=== PATIENT | female | born 1950 | race Asian ===

== ENCOUNTER 2016-12-22 05:18 | Emergency (ER) | payer MEDICARE, BC ==
[~2016-12-22] VITALS: Ht 162.6 cm; Wt 68.5 kg
[~2016-12-22 05:18] MED LIST: AUG875 PO; BACTDS PO; BEN25 PO; CEPH-443 PO; CETI10CA PO; CLIN-73 PO; IBUP-1542 PO; KENC1 TOP; LEVE500S9 PO; PHEN30CA79 PO; TRAM50TA2 PO
[2016-12-22 05:19] VITALS: Ht 162.6 cm; Wt 68.5 kg
[2016-12-22] MEDS ORDERED: ASPI-664 PO (05:48)
[2016-12-22] MEDS ORDERED: MULTI PO (05:49)
[2016-12-22] MEDS ORDERED: OMEG-80 PO (05:49)
[2016-12-22] MEDS ORDERED: PHOS100P3 MC (05:50)
[2016-12-22] MEDS ORDERED: ARIP5TAB7 PO (05:51)
[2016-12-22] MEDS ORDERED: LEVE500S9 PO (05:56)
[2016-12-22] MEDS ORDERED: LEVE750T8 PO (05:58)
[2016-12-22] MEDS ORDERED: PHEN200C3 PO (06:02)
[2016-12-22 07:10] LABS: ADD SCAN DIFF NO
[2016-12-22 07:19] LABS: BASOPHILS % 0.7 % (0.0-2.0); HEMATOCRIT 38.6 % (37.0-47.0); HEMOGLOBIN 12.8 g/dl (12.0-16.0); LYMPHOCYTES # 1.4 10^3/ul (0.8-2.9); LYMPHOCYTES % 35.7 % (15.0-51.0); MEAN CORPUSCULAR HEMOGLOBIN 31.1 pg (29.0-33.0); MEAN CORPUSCULAR HGB CONC 33.2 g/dl (32.0-37.0); MEAN CORPUSCULAR VOLUME 93.7 fl (82.0-101.0); MEAN PLATELET VOLUME 8.9 fl (7.4-10.4); MONOCYTE # 0.5 10^3/ul (0.3-0.9); MONOCYTES % 11.4 % (0.0-11.0); NEUTROPHIL # 2.1 10^3/ul (1.6-7.5); PLATELET COUNT 197 10^3/UL (140-415); RED BLOOD COUNT 4.12 10^6/ul (4.20-5.40); RED CELL DISTRIBUTION WIDTH 12.3 % (11.5-14.5)
--- NOTE | 2016-12-22 07:26 | RADRPT ---
PROCEDURE: CT Brain without. CLINICAL INDICATION: Altered mental status TECHNIQUE: A CT of the brain was performed utilizing axial sections from the skull base through th e vertex without contrast. The scan was reviewed in soft tissue brain and high frequency resolution bone algorithm windows. Images were reviewed on a high-resolution PACS workstation. One or more of the following dose reduction techniques were used: Automated exposure control, Adjust ment of the mA and/or kV according to patient size, and/or Use of iterative reconstruction technique . The exam CTDI = 45.01 mGy, and the DLP = 720.23 mGy-cm. COMPARISON: None available FINDINGS: The ventricles are normal in size and midline in position. There is no intracranial hemorrhage, mid line shift, or mass effect. No abnormal extra-axial fluid collections are identified. The yang-whi te differentiation is well preserved. The basal cisterns are patent. The posterior fossa is unrema rkable. The visualized portions of the orbits are unremarkable. The paranasal sinuses and mastoid air cells are clear. No calvarial fracture or abnormality are identified. The soft tissues are unremarkable . IMPRESSION: Unremarkable CT of the brain. RPTAT: HH .Germania Akins MD, MD Date Time Electronically viewed and signed by .Germania Akins MD, on 12/22/2016 07:25 .G/
--- NOTE | 2016-12-22 07:30 | RADRPT ---
PROCEDURE: XR Chest. CLINICAL INDICATION: Chest pain TECHNIQUE: A single AP view of the chest was obtained. COMPARISON: None. FINDINGS: No focal airspace opacification, pleural effusion or pneumothorax is seen. The cardiomediastinal si lhouette is mildly enlarged. The osseous structures demonstrate S-shaped scoliosis of the thoracolu mbar spine. IMPRESSION: 1. No radiographic evidence of acute cardiopulmonary disease. 2. Mild cardiomegaly. 3. S-shaped scoliosis of the thoracolumbar spine. RPTAT: HH .Germania Akisn MD, MD Date Time Electronically viewed and signed by .Germania Akins MD, MD on 12/22/2016 07:29 .G/
[2016-12-22 07:33] LABS: INR 1.05; PROTIME 13.7 Sec (12.2-14.2); PT RATIO 1.1
[2016-12-22 07:34] LABS: PARTIAL THROMBOPLASTIN TIME 28.6 Sec (25.0-35.0)
[2016-12-22 07:35] LABS: ALBUMIN 4.4 g/dl (3.3-4.9)
[2016-12-22 07:36] LABS: CHLORIDE 100 mmol/L (97-110); POTASSIUM 4.2 mmol/L (3.5-5.1); SODIUM 139 mmol/L (135-144)
[2016-12-22 07:38] LABS: ALBUMIN/GLOBULIN RATIO 1.57; ALKALINE PHOSPHATASE 81 IU/L (42-121); ANION GAP 14 (8-16); ASPARTATE AMINO TRANSFERASE 35 IU/L (15-46); BILIRUBIN,INDIRECT 0.4 mg/dl (0-1.1); BILIRUBIN,TOTAL 0.4 mg/dl (0.2-1.3); CARBON DIOXIDE 29 mmol/L (21-31); TOTAL PROTEIN 7.2 g/dl (6.1-8.1)
[2016-12-22 07:39] LABS: ALANINE AMINOTRANSFERASE 37 IU/L (13-69); BLOOD UREA NITROGEN 15 mg/dl (7-20); CALCIUM 9.2 mg/dl (8.4-10.2); GLUCOSE 92 mg/dl (70-220)
[2016-12-22] MEDS ORDERED: HC1C30 TOP (07:53)
[2016-12-22 07:57] LABS: ACETAMINOPHEN < 10.0 ug/ml (10.0-30.0); SALICYLATE < 1.0 mg/dl (5.0-30.0); TROPONIN-I < 0.012 ng/ml (0.00-0.12)
[2016-12-22 08:09] LABS: ETHANOL < 10.0 mg/dl
[2016-12-22 08:12] VITALS: BP 128/76; PULSE 78; RESP 20
--- NOTE | 2016-12-22 08:15 | ERD ---
ER Documentation Chief Complaint Date/Time DATE: 12/22/16 TIME: 08:15 Chief Complaint possible seizure tonight with hx epilepsy. spider bite. patient confused HPI Patient is a 66-year-old female with seizures who presents saying "I think I had a seizure". She has a history of epilepsy. She said the seizure happened last night. She also is complaining of a "spider bite" to the left hand. She says that her head feels tight and she feels confused. She lives alone. She says that she has an appointment scheduled with her neurologist today. Upon review of old medical records this is the patient's 10th visit to the ER since 2007. ROS All systems reviewed and are negative except as per history of present illness. Medications Home Meds Active Scripts Hydrocortisone* Topical (Hydrocortisone* Topical) 1%-28.35 Gm Cream..g., 1 APPLIC TOP Q6 Y for ITCHING, #1 TUB Prov:RONI HORN MD 12/22/16 Ibuprofen* (Motrin*) 600 Mg Tab, 600 MG PO Q6H Y for PAIN AND OR ELEVATED TEMP, #30 TAB Prov:MARIO QUINTEROS NP 05/20/16 Reported Medications Phenytoin* Sodium Extended (Phenytoin* Sodium Extended) 200 Mg Capsule, 200 MG PO AC BREAKFAST DINNER, CAP WEDNESDAY TO WEDNESDAY 200MG EVERY MORNING AND AT BEDTIME EVERY WEDNESDAY PATIENT TAKE 200MG IN THE MORNING AND 100MG IN THE EVENING 12/22/16 Levetiracetam* (Levetiracetam*) 750 Mg Tablet, 1500 MG PO BID WITH MEALS, TAB 12/22/16 Aripiprazole* (Abilify*) 5 Mg Tab, 5 MG PO QHS, #30 TAB 12/22/16 Phosphatidyl Serine (PHOSPHATIDYL SERINE) 100 Gm Powder, 100 GM MC 12/22/16 [place]-3S/Dha/Epa/Fish Oil/D3 (FISH OIL + D3 SOFTGEL) 1 Each Capsule, 1 EACH PO, CAP 12/22/16 Multivitamins* (Theragran*) 1 Tab Tab, 1 TAB PO DAILY, TAB 12/22/16 Aspirin* (Aspirin* (EC)) 81 Mg Tablet.dr 81 MG PO DAILY, TAB 12/22/16 Discontinued Reported Medications Levetiracetam* (Levetiracetam*) 500 Mg/5 Ml Solution, 1500 MG PO AC MEALS AND BEDTIME, ML 12/22/16 Levetiracetam* (Keppra*) Unknown Strength Solution, PO BID, BOTTLE 08/05/16 Phenytoin* Sodium Extended (Dilantin*) Unknown Strength Capsule, PO HS, CAP 08/05/16 Discontinued Scripts Tramadol HCl (Tramadol HCl) 50 Mg Tablet, 50 MG PO Q6 Y for SEVERE PAIN LEVEL 7- 10, #20 TAB Prov:MARIO QUINTEROS [employer] 08/05/16 Ibuprofen* (Motrin*) 600 Mg Tab, 600 MG PO Q6H Y for PAIN AND OR ELEVATED TEMP, #30 TAB Prov:MARIO QUINTEROS [employer] 08/05/16 Diphenhydramine Hcl* (Benadryl*) 25 Mg Cap, 25 MG PO Q6 Y for ITCHING/RASH, #30 TAB Prov:MARIO QUINTEROS NP 05/20/16 Clindamycin Hcl* (Clindamycin Hcl*) 300 Mg Capsule, 300 MG PO TID for 10 Days, CAP Prov:MARIO QUINTEROS NP 05/20/16 Cetirizine Hcl* (Zyrtec*) 10 Mg Capsule, 10 MG PO DAILY, #14 TAB.CHEW Prov:MIKE DAVILA MD 12/24/15 Triamcinolone Acetonide (Triamcinolone Acetonide) 0.1% - 15 Gm Cream.gm., 1 APPLIC TOP TID for 7 Days, TUB Prov:MIKE DAVILA MD 12/24/15 Clindamycin Hcl* (Clindamycin Hcl*) 300 Mg Capsule, 300 MG PO QID for 7 Days, CAP Prov:MIKE DAVILA MD 12/24/15 Ibuprofen* (Motrin*) 600 Mg Tab, 600 MG PO Q6, #20 TAB Prov:GEOVANNI CABRERA PA-C 05/14/15 Sulfamethoxazole-Trimethoprim* (Bactrim* DS) 800-160 Mg Tab, 1 TAB PO BID for 10 Days, TAB Prov:GEOVANNI CABRERA PA-C 05/14/15 Amoxicillin-Clavulanate K* (Augmentin*) 875 Mg Tab, 875 MG PO BID for 7 Days, TAB Prov:GEOVANNI CABRERA PA-C 05/14/15 Ibuprofen* (Motrin*) 600 Mg Tab, 600 MG PO Q6, #20 TAB Prov:GEOVANNI CABRERA PA-C 05/05/15 Sulfamethoxazole-Trimethoprim* (Bactrim* DS) 800-160 Mg Tab, 1 TAB PO BID for 10 Days, TAB Prov:GEOVANNI CABRERA PA-C 05/05/15 Cephalexin* (Keflex*) 500 Mg Capsule, 500 MG PO QID for 7 Days, CAP Prov:GEOVANNI CABRERA PA-C 05/05/15 Allergies Allergies: Coded Allergies: diazepam (Verified Allergy, Unknown, 12/22/16) sulfamethoxazole (Verified Allergy, Unknown, discoloration, 12/22/16) trimethoprim (Verified Allergy, Unknown, discoloration, 12/22/16) PMhx/Soc History of Surgery: Yes (dental) Anesthesia Reaction: No Hx Neurological Disorder: Yes (seizure) Hx Respiratory Disorders: No Hx Cardiac Disorders: No Hx Psychiatric Problems: No Hx Miscellaneous Medical Probl: No Hx Alcohol Use: No Hx Substance Use: No Hx Tobacco Use: No Smoking Status: Never smoker FmHx Family History: diabetes Physical Exam Vitals Vital Signs Date Time Temp Pulse Resp B/P Pulse Ox O2 Delivery O2 Flow Rate FiO2 12/22/16 08:12 78 20 128/76 99 Room Air 12/22/16 07:08 Nasal Cannula 2 12/22/16 05:19 98.8 81 18 128/59 96 Physical Exam Const: No acute distress Head: Atraumatic Eyes: Normal Conjunctiva ENT: Normal External Ears, Nose and Mouth. Neck: Full range of motion..~ No meningismus. Resp: Clear to auscultation bilaterally Cardio: Regular rate and rhythm, no murmurs Abd: Soft, non tender, non distended. Normal bowel sounds Skin: Mild erythema to the left hand Back: No midline or flank tenderness Ext: No cyanosis, or edema Neur: Awake and alert Psych: Normal Mood and Affect Result Diagram: 12/22/16 0653 12/22/16 0653 Results 24 hrs Laboratory Tests Test 12/22/16 06:53 White Blood Count 4.010^3/ul Red Blood Count 4.1210^6/ul Hemoglobin 12.8g/dl Hematocrit 38.6% Mean Corpuscular Volume 93.7fl Mean Corpuscular Hemoglobin 31.1pg Mean Corpuscular Hemoglobin Concent 33.2g/dl Red Cell Distribution Width 12.3% Platelet Count 62958^3/UL Mean Platelet Volume 8.9fl Neutrophils % 51.0% Lymphocytes % 35.7% Monocytes % 11.4% Eosinophils % 1.0% Basophils % 0.7% Nucleated Red Blood Cells % 0.0/100WBC Neutrophils # 2.110^3/ul Lymphocytes # 1.410^3/ul Monocytes # 0.510^3/ul Eosinophils # 0.010^3/ul Basophils # 0.010^3/ul Nucleated Red Blood Cells # 0.010^3/ul Prothrombin Time 13.7Sec Prothrombin Time Ratio 1.1 INR International Normalized Ratio 1.05 Activated Partial Thromboplast Time 28.6Sec Sodium Level 139mmol/L Potassium Level 4.2mmol/L Chloride Level 100mmol/L Carbon Dioxide Level 29mmol/L Anion Gap 14 Blood Urea Nitrogen 15mg/dl Creatinine 0.70mg/dl Glucose Level 92mg/dl Calcium Level 9.2mg/dl Total Bilirubin 0.4mg/dl Direct Bilirubin 0.00mg/dl Indirect Bilirubin 0.4mg/dl Aspartate Amino Transf (AST/SGOT) 35IU/L Alanine Aminotransferase (ALT/SGPT) 37IU/L Alkaline Phosphatase 81IU/L Ammonia < 9umol/l Troponin I < 0.012ng/ml Total Protein 7.2g/dl Albumin 4.4g/dl Globulin 2.80g/dl Albumin/Globulin Ratio 1.57 Salicylates Level < 1.0mg/dl Acetaminophen Level < 10.0ug/ml Ethyl Alcohol Level < 10.0mg/dl Procedures/[facility] EKG read by me: Rate/Rhythm: First-degree AV block at a rate of 69 Intervals: Normal Impression: First-degree AV block without ischemia CT brain negative for intracranial hemorrhage. Chest x-ray negative per radiology. Patient is a 66-year-old female with seizures who presents with seizure and bug bite. I believe outpatient management is appropriate this time. She is on point with her neurologist today. I did discuss with her admission but she is adamant that she does not want to be admitted at this time. She is awake and able to answer questions appropriately at this time. The patient can return for any worsening symptoms. I doubt intracranial hemorrhage or mass. I doubt serious bacterial infection. The patient will need to follow-up with a primary doctor within 24-48 hours and can return if symptoms worsen. Departure Diagnosis: Primary Impression: Altered mental status Altered mental status type: unspecified Qualified Code: R41.82 - Altered mental status, unspecified altered mental status type Additional Impressions: Insect bites Encounter type: initial encounter Qualified Code: W57.XXXA - Insect bites, initial encounter Seizure Condition: Fair Patient Instructions: Altered Loc Referrals: Your doctor Additional Instructions: Keep the appointment with your doctor scheduled for today. RONI HORN MD December 22, 2016 08:15
== END 2016-12-22 08:15 | disposition home or self-care (01) ==
LOC: E/R 05:18
DX: R41.82 Altered mental status, unspecified (principal); R56.9 Unspecified convulsions; R07.9 Chest pain, unspecified; W57.XXXA Bitten or stung by nonvenomous insect and other nonvenomous arthropods, initial encounter; Y92.9 Unspecified place or not applicable; Z79.82 Long term (current) use of aspirin
CPT/HCPCS: 36415; 70450; 71010; 80053; 80185; 80306; 82140; 84484; 85025; 85610; 85730; 93005

== ENCOUNTER 2016-12-29 20:28 | Emergency (ER) | payer BC, MEDICARE ==
[~2016-12-29] VITALS: Ht 162.6 cm; Wt 75.5 kg
[~2016-12-29 20:28] MED LIST changes: +ARIP5TAB7 PO; +ASPI-664 PO; -AUG875 PO; -BACTDS PO; -BEN25 PO; -CEPH-443 PO; -CETI10CA PO; -CLIN-73 PO; +HC1C30 TOP; -KENC1 TOP; -LEVE500S9 PO; +LEVE750T8 PO; +MULTI PO; +OMEG-80 PO; +PHEN200C3 PO; -PHEN30CA79 PO; +PHOS100P3 MC; -TRAM50TA2 PO
[2016-12-29 20:30] VITALS: Ht 162.6 cm; Wt 75.5 kg
== END 2016-12-29 22:31 | disposition left against medical advice (07) ==
LOC: E/R 20:28
DX: Z53.21 Procedure and treatment not carried out due to patient leaving prior to being seen by health care provider (principal)

== ENCOUNTER → 2018-07-06 | Emergency (ER) | END | disposition home or self-care (01) ==

== ENCOUNTER 2018-08-01 05:20 | Emergency (ER) | END 2018-08-01 06:35 | disposition home or self-care (01) ==

== ENCOUNTER 2019-01-28 15:10 | Emergency (ER) | payer MEDICARE, BC ==
[~2019-01-28] VITALS: Ht 162.6 cm; Wt 66.0 kg
[~2019-01-28 15:10] MED LIST changes: +ARIP5TAB14 PO; -ARIP5TAB7 PO; +ASPI-1046 PO; -ASPI-664 PO; +MUPI22OI2 TOP
[2019-01-28 15:16] VITALS: BP 134/88; PULSE 81; RESP 18; Ht 162.6 cm; Wt 66.0 kg
[2019-01-28] MEDS ORDERED: BEN25 PO (15:50)
--- NOTE | 2019-01-28 15:53 | ERD ---
ER Documentation Chief Complaint Chief Complaint SPIDER BITE ON RT THUMB HPI 68-year-old female complains of a spider bite in her right thumb while underneath the house turning off her main water letter. She did see a spider. She believes it may been a black . She denies any abdominal pain, vomiting, fevers, chest pain, shortness of breath. Tetanus is not up-to-date. ROS All systems reviewed and are negative except as per history of present illness. Medications Home Meds Active Scripts Diphenhydramine Hcl* (Benadryl*) 25 Mg Cap, 25 MG PO Q6, #15 CAP Prov:MIKE DAVILA MD 01/28/19 Mupirocin* (Bactroban*) 2% -22 Gram Oint...g., 1 APPLIC TOP BID for 7 Days, EA Prov:JIMMIE ANDERSON-C 08/01/18 Ibuprofen* (Motrin*) 600 Mg Tab, 600 MG PO Q6, #20 TAB Prov:LARA LAZOC 07/06/18 Hydrocortisone* Topical (Hydrocortisone* Topical) 1%-28.35 Gm Cream..g., 1 APPLIC TOP Q6 PRN for ITCHING, #1 TUB Prov:RONI HORN MD 12/22/16 Ibuprofen* (Motrin*) 600 Mg Tab, 600 MG PO Q6H PRN for PAIN AND OR ELEVATED TEMP, #30 TAB Prov:MARIO QUINTEROS NP 05/20/16 Reported Medications Phenytoin* Sodium Extended (Phenytoin* Sodium Extended) 200 Mg Capsule, 200 MG PO AC BREAKFAST DINNER, CAP WEDNESDAY TO WEDNESDAY 200MG EVERY MORNING AND AT BEDTIME EVERY WEDNESDAY PATIENT TAKE 200MG IN THE MORNING AND 100MG IN THE EVENING 12/22/16 Levetiracetam* (Levetiracetam*) 750 Mg Tablet, 1500 MG PO BID WITH MEALS, TAB 12/22/16 Aripiprazole* (Abilify*) 5 Mg Tab, 5 MG PO QHS, #30 TAB 12/22/16 Phosphatidyl Serine (PHOSPHATIDYL SERINE) 100 Gm Powder, 100 GM MC 12/22/16 [place]-3S/Dha/Epa/Fish Oil/D3 (FISH OIL + D3 SOFTGEL) 1 Each Capsule, 1 EACH PO, CAP 12/22/16 Multivitamins* (Theragran*) 1 Tab Tab, 1 TAB PO DAILY, TAB 12/22/16 Aspirin* (Aspirin* (EC)) 81 Mg Tablet.dr, 81 MG PO DAILY, TAB 12/22/16 Allergies Allergies: Coded Allergies: diazepam (Verified Allergy, Unknown, 08/01/18) sulfamethoxazole (Verified Allergy, Unknown, discoloration, 08/01/18) trimethoprim (Verified Allergy, Unknown, discoloration, 08/01/18) PMhx/Soc History of Surgery: Yes (dental) Anesthesia Reaction: No Hx Neurological Disorder: Yes (seizure) Hx Respiratory Disorders: No Hx Cardiac Disorders: No Hx Psychiatric Problems: No Hx Miscellaneous Medical Probl: No Hx Alcohol Use: No Hx Substance Use: No Hx Tobacco Use: No Smoking Status: Never smoker FmHx Family History: No diabetes, No coronary disease, No other Physical Exam Vitals Vital Signs Date Temp Pulse Resp B/P (MAP) Pulse Ox O2 O2 Flow FiO2 Time Delivery Rate 01/28/19 98.1 81 18 134/88 97 15:16 (103) Physical Exam Const: No acute distress Head: Atraumatic Eyes: Normal Conjunctiva ENT: Normal External Ears, Nose and Mouth. Neck: Full range of motion. No meningismus. Resp: Clear to auscultation bilaterally Cardio: Regular rate and rhythm, no murmurs Abd: Soft, non tender, non distended. Normal bowel sounds Skin: No petechiae or rashes Back: No midline or flank tenderness Ext: No cyanosis, or edema. On the tip of the thumb there is 2 small puncture wounds. There is no surrounding erythema, warmth, restricted range of motion of deficits. Neur: Awake and alert Psych: Normal Mood and Affect Results 24 hrs Current Medications Medications Dose Sig/Tacos Start Time Status Last (Trade) Ordered Route PRN Stop Time Admin Dose Reason Admin 650 mg ONCE ONCE 01/28/19 01/28/19 Acetaminophen PO 16:00 01/28/19 15:47 (Tylenol 16:01 Tab) Diphtheria/ 0.5 ml ONCE ONCE 01/28/19 01/28/19 Tetanus/Acell IM* 16:00 01/28/19 15:49 Pertussis 16:01 (Adacel) Procedures/MDM Patient presents with what appears to be a spider bite on the tip of the right thumb. There is no current signs or symptoms of systemic reaction, cellulitis, additional concerning signs or symptoms of complications, ischemia, deficits.. It may be a nonvenomous spider or possibly black without systemic reactions given that it is the tip of a extremity. It has been 4 hours since she was bit. I am recommending further observation and return precautions worsening redness, fevers, abdominal pain, vomiting, fevers, shortness of breath or chest pain. Patient was given tetanus booster. Departure Diagnosis: Primary Impression: Spider bite Encounter type: initial encounter Injury intent: undetermined intent Qualified Codes: T63.304A - Toxic effect of unspecified spider venom, undetermined, initial encounter Additional Impression: Bite wound Condition: Stable Patient Instructions: Black Spider Bite, Spider Bite, Non-Poisonous Additional Instructions: Currently no significant reaction whether black or nonvenomous spider. Recommend recheck for worsening redness, fevers, muscle spasms, shortness of breath, chest pain, abdominal pain, new worsening symptoms. Take Tylenol every 4 hours for pain. MIKE DAVILA MD Jan 28, 2019 15:53
[2019-01-28] MEDS ORDERED: ACETAMINOPHEN 325 MG TAB PO ONE (16:00)
[2019-01-28] MEDS ORDERED: DIPHTH/TET/ACEL PERTUSS (ADULT) 0.5 ML VIAL IM* ONE (16:00)
== END 2019-01-28 16:04 | disposition home or self-care (01) ==
LOC: FTE 15:10
DX: T63.304A Toxic effect of unspecified spider venom, undetermined, initial encounter (principal); Z23 Encounter for immunization; Z79.82 Long term (current) use of aspirin
CPT/HCPCS: 90471; 90715